=== PATIENT | female | born 1970 | race Caucasian/White ===

== ENCOUNTER 2018-08-13 06:05 | Emergency (ER) | payer MEDICAID, OTHER ==
[~2018-08-13] VITALS: Wt 83.7 kg
[2018-08-13 06:10] VITALS: BP 144/87; PULSE 74; RESP 18
[2018-08-13] MEDS ORDERED: ACETAMINOPHEN 325 MG TAB PO ONE (06:30)
[2018-08-13] MEDS ORDERED: ACET500C5 PO (07:33)
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
== END 2018-08-13 07:45 | disposition home or self-care (01) ==
LOC: FTE 06:05
DX: S09.90XA Unspecified injury of head, initial encounter (principal); R51 Headache; V49.50XA Passenger injured in collision with unspecified motor vehicles in traffic accident, initial encounter
CPT/HCPCS: 70450; 81025; Z7502; Z7610